=== PATIENT | male | born 1955 | race African-American/Black ===

== ENCOUNTER 2020-03-23 19:31 | Emergency (ER) | payer OTHER ==
[~2020-03-23] VITALS: Ht 170.2 cm; Wt 95.3 kg
[2020-03-23 19:43] VITALS: BP 161/87
--- NOTE | 2020-03-23 19:51 | Emergency Room Report ---
History of Present Illness General Chief Complaint: Lower Back Pain or Injury Source: Patient Present Illness HPI Patient is a 64-year-old male presents for increased low back pain. Onset of symptoms approximately 1 week ago after twisting movement while getting out of a car. Reports having some radiation of pain to his buttock into the right leg. Denies any fever. Denies any recent trauma. Had worsening pain with upright position. Pain is improved slightly with sitting. Denies any prior history of prostate disease or IV drug use. 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 Patient History Past Medical History: see triage record Reviewed Nursing Documentation: PMH: Agreed; PSxH: Agreed Nursing Documentation-PMH Past Medical History: No Stated History Review of Systems All Other Systems: negative except mentioned in HPI Physical Exam Vital Signs Date Time Temp Pulse Resp B/P (MAP) Pulse Ox O2 Delivery O2 Flow Rate FiO2 03/23/20 19:37 98.4 81 18 161/87 (111) 99 Room Air General Appearance: well appearing, no apparent distress, alert, GCS 15, obese Head: normocephalic, atraumatic ENT: hearing grossly normal, normal voice Neck: full range of motion, supple Respiratory: no respiratory distress, speaking full sentences Cardiovascular #1: normal inspection, regular rate, rhythm Gastrointestinal: normal inspection Musculoskeletal: normal inspection, gait/station normal, swelling, no calf tenderness Neurologic: alert, motor strength/tone normal, 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 Differential diagnosis include was not limited to sciatica, spinal stenosis, herniated disc among others. Because of complexity of patient's case imaging studies were ordered. Patient reports having some radicular symptoms. Pulses appear to be intact and patient has intact strength.CT imaging read by radiology showed no evidence of acute bony or disc disease. Inguinal hernia was incidentally noted. Patient was advised of CT findings. He was advised to follow-up with his primary care physician for recheck. Given medications for symptomatic treatment. He was advised to return if worse. This medical record is generated with [employer] engineering model maker software. There may be some engineering model maker discrepancies related to use of this software Last Vital Signs Date Time Temp Pulse Resp B/P (MAP) Pulse Ox O2 Delivery O2 Flow Rate FiO2 03/23/20 19:43 98.4 85 18 161/87 99 Room Air Status: improved Disposition: HOME, SELF-CARE Condition: Stable Scripts Gabapentin* (GABAPENTIN*) 400 Mg Capsule 400 MG ORAL THREE TIMES A DAY, #20 CAP 0 Refills Prov: Kirby Negrete MD 03/23/20 Methocarbamol* (ROBAXIN-750*) 750 Mg Tablet 750 MG PO TID, #21 TAB 0 Refills Prov: Kirby Negrete MD 03/23/20 Kirby Negrete MD Mar 23, 2020 19:51
[2020-03-23] MEDS ORDERED: Ketorolac 60mg Inj IM ONE (20:00)
[2020-03-23 20:05] LABS: APPEARANCE,URINE CLEAR; BILIRUBIN, URINE NEGATIVE (NEGATIVE); COLOR,URINE PALE YELLOW; GLUCOSE, URINE (UA) NEGATIVE (NEGATIVE); KETONES,URINE NEGATIVE (NEGATIVE); LEUKOCYTE ESTERASE ,URINE NEGATIVE (NEGATIVE); NITRITE,URINE NEGATIVE (NEGATIVE); PH,URINE 6 (4.5-8.0); PROTEIN,URINE NEGATIVE (NEGATIVE); UROBILINOGEN,URINE NORMAL MG/DL (0.0-1.0)
--- NOTE | 2020-03-23 21:08 | Diagnostic Imaging Report ---
EXAM: CT Lumbar Spine Without Intravenous Contrast CLINICAL HISTORY: PAIN TECHNIQUE: Axial computed tomography images of the lumbar spine without intravenous contrast. CTDI is 13.90 mGy and DLP is 534.30 mGy-cm. One or more of the following dose reduction techniques were used: automated exposure control, adjustment of the mA and/or kV according to patient size, use of iterative reconstruction technique. COMPARISON: No relevant prior studies available. FINDINGS: Vertebrae: Unremarkable. No acute fracture. Discs/spinal canal/neural foramina: No acute findings. No spinal canal stenosis. Soft tissues: Partially visualized left inguinal hernia. The urinary bladder partially extends into the hernia. IMPRESSION: 1. No acute findings in the lumbar spine. 2. Partially visualized left inguinal hernia with urinary bladder contents.
[2020-03-23] MEDS ORDERED: ROBAXIN-750750 MG PO (22:03)
[2020-03-23] MEDS ORDERED: GABAPENTIN400 MG ORAL (22:03)
[2020-03-23 22:08] VITALS: BP 148/81
== END 2020-03-23 22:08 | disposition home or self-care (01) ==
LOC: EMR 19:56
DX: M54.5 Low back pain (principal); K44.9 Diaphragmatic hernia without obstruction or gangrene; X50.1XXA Overexertion from prolonged static or awkward postures, initial encounter; Y93.89 Activity, other specified; Y92.810 Car as the place of occurrence of the external cause
CPT/HCPCS: 72131; 81003; 96372; Z7502; 99284